=== PATIENT | male | born 1970 | race Caucasian/White ===

== ENCOUNTER 2018-06-21 19:24 | Emergency (ER) | payer BC, OTHER ==
[2018-06-21 19:44] VITALS: BP 152/101
[2018-06-21] MEDS ORDERED: Lidocaine 1% 10 ML MDV INJECT ONE (20:30)
[2018-06-21] MEDS ORDERED: oxyCODONE 5 MG Tab PO ONE (20:31)
[2018-06-21] MEDS ORDERED: Acetaminophen 325 MG Tab PO ONE (20:31)
[2018-06-21] MEDS ORDERED: Cephalexin 500 MG Cap PO ONE (21:59)
[2018-06-21] MEDS ORDERED: Sulfamethoxazole/Trimethoprim 800-160 MG Tab PO ONE (22:00)
--- NOTE | 2018-06-21 22:31 | EDM.PDOC ---
ED HPI GENERAL MEDICAL PROBLEM - General Chief Complaint: Bite:Animal, Insect Stated Complaint: DOG BITE RIGHT HAND Time Seen by Provider: 06/21/18 19:34 Source of Information: Reports: Patient, Family History Limitations: Reports: No Limitations - History of Present Illness INITIAL COMMENTS - FREE TEXT/NARRATIVE: 47-year-old male with no reported past medical history presenting with chief complaint of dog bite to the right hand. This evening shortly prior to arrival patient was attempting to break up a fight between his dogs which are fully vaccinated against rabies. He sustained L laceration to the palmar aspect of the distal phalanx of the first digit of the right hand. He then fell to his knees due to the pain and was brought to the emergency department by his . Currently the patient reports pain localized to the wound that is mild to moderate in severity worse with movement. Right 1-Thumb Pain Score (Numeric/FACES): 3 - Related Data Allergies Allergy/AdvReac Type Severity Reaction Status Date / Time ampicillin Allergy Cannot Verified 12/17/15 01:07 Remember Home Meds: Home Meds Acetaminophen 1,000 mg PO TID PRN #30 tablet 06/21/18 [Rx] Sulfamethoxazole/Trimethoprim [Bactrim Ds Tablet] 1 each PO BID #10 tablet 06/21 [Rx] cephALEXin [Cephalexin] 500 mg PO QID #40 capsule 06/21/18 [Rx] oxyCODONE 5 mg PO QID PRN #10 tab 06/21/18 [Rx] Past Medical History - Past Health History Medical/Surgical History: Denies Medical/Surgical History Other HEENT History: dental work Other Cardiovascular History: SVT at 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 Gastrointestinal History: Reports: Other (See Below) Other Gastrointestinal History: pyloric stenosis Social & Family History - Tobacco Use Smoking Status *Q: Never Smoker - Caffeine Use Caffeine Use: Reports: Coffee, Soda, Tea - Recreational Drug Use Recreational Drug Use: No ED ROS GENERAL - Review of Systems Review Of Systems: See Below Constitutional: Reports: No Symptoms HEENT: Reports: No Symptoms Cardiovascular: Reports: No Symptoms GI/Abdominal: Reports: No Symptoms Skin: Reports: Wound Neurological: Reports: No Symptoms ED EXAM, ANIMAL BITE - Physical Exam Exam: See Below Exam Limited By: No Limitations General Appearance: Alert, Mild Distress Respiratory/Chest: No Respiratory Distress Cardiovascular: Normal Peripheral Pulses, Regular Rate, Rhythm GI/Abdominal: Soft, Non-Tender Extremities: Other (Right hand: Stellate laceration to the palmar aspects of the distal phalanx of the thumb, no obvious tendon or bone visible pulsatile bleeding. There is brisk capillary refill to the digit and the patient is able to really flex the digit as well. Also minor abrasion which is on the medial aspect of the thumb. The aforementioned laceration is approximately 1 x 1 cm.) ED ANIMAL BITE PROCEDURES - Additional/Other Procedure(s) Other (Free Text) Procedure(s): Digital block was performed on the thumb of the right hand. After thorough cleansing with chlorhexidine and used 5 mL 1% lidocaine without epinephrine at the base of the right thumb. Good anesthetic results were achieved. After this and proceeded to examine the wound extremely thoroughly there appeared to be no visible tendon or bone and no serious vascular injury. The wound was thoroughly cleansed with chlorhexidine and normal saline. Proceeded to perform a loose closure of the wound which will allow for any purulent drainage that should arise. Placed simple interrupted sutures with 4-0 Prolene. The cosmetic and functional, repair were acceptable. There were no complications during the procedure. Course - Vital Signs Last Recorded V/S: Last Vital Signs Temp 37.1 C 06/21/18 19:43 Pulse 99 06/21/18 19:43 Resp 24 H 06/21/18 19:43 BP 152/101 H 06/21/18 19:43 Pulse Ox 96 06/21/18 19:43 - Orders/Labs/Meds Orders: Active Orders 24 hr Category Date Time Status Orthopedic Treatments [RC] ASDIRECTED Care 06/21/18 21:49 Active Fingers Thumb Rt F5 [CR] Stat Exams 06/21/18 20:45 Taken Meds: Medications Discontinued Medications Generic Name Dose Route Start Last Admin Trade Name Freq PRN Reason Stop Dose Admin Acetaminophen 650 mg 06/21/18 20:31 06/21/18 20:44 Tylenol PO 06/21/18 20:32 650 mg NOW ONE Administration Cephalexin 500 mg 06/21/18 21:59 06/21/18 22:08 Keflex PO 06/21/18 22:00 500 mg ONETIME ONE Administration Lidocaine HCl 10 ml 06/21/18 20:30 06/21/18 20:59 Xylocaine 1% INJECT 06/21/18 20:31 10 ml ONETIME ONE Administration Oxycodone HCl 5 mg 06/21/18 20:31 06/21/18 20:59 Oxycodone PO 06/21/18 20:32 5 mg ONETIME ONE Administration Trimethoprim/Sulfamethoxazole 1 tab 06/21/18 22:00 06/21/18 22:07 Septra Ds PO 06/21/18 22:01 1 tab ONETIME ONE Administration - Re-Assessments/Exams Free Text/Narrative Re-Assessment/Exam: 06/21/18 22:31 This is a 47-year-old male presenting with a chief complaint of dog bite to the right thumb. Exam was unrevealing of any deep structure injury; no tendon or vascular injury noted. Patient is also neurologically intact with no evidence of a nerve injury. He is able to fully flex the right thumb. Plain films of the wound were obtained there is no evidence of retained foreign body or underlying fracture by my interpretation. After digital block was performed the wound was thoroughly explored and cleansed. Repair was performed as documented above. This wound is at some risk of infection due to it being a dog bite. Therefore only loose closure was performed which will allow for some drainage from the wound. Furthermore I placed patient on prophylactic antibiotic therapy getting his first dose in the emergency department. Since he has a penicillin allergy I will treat with bactrim and keflex for 7 days. I counseled the patient extensively on size which could indicate a wound infection. He understands that he is to return to the emergency department immediately for reevaluation should he develop any signs of infection. I also told the patient he should have the wound evaluated next Saturday for any signs of infection and possible suture removal by his primary care physician. I was told by nursing that his tetanus vaccination was update here in the ED. Departure - Departure Time of Disposition: 13:00 Disposition: Home, Self-Care 01 Condition: Good Clinical Impression: Dog bite Qualifiers: Encounter type: initial encounter Qualified Code(s): W54.0XXA - Bitten by dog, initial encounter - Discharge Information *PRESCRIPTION DRUG MONITORING PROGRAM REVIEWED*: No *COPY OF PRESCRIPTION DRUG MONITORING REPORT IN PATIENT KHUSHBOO: No Prescriptions: Acetaminophen 1,000 mg PO TID PRN #30 tablet PRN Reason: Pain cephALEXin [Cephalexin] 500 mg PO QID #40 capsule oxyCODONE 5 mg PO QID PRN #10 tab PRN Reason: Pain Sulfamethoxazole/Trimethoprim [Bactrim Ds Tablet] 1 each PO BID #10 tablet Instructions: Animal Bite, [id number] Referrals: Dexter Roe Jr, MD [Primary Care Provider] - Forms: ED Department Discharge, ED Return to Work/School Form - My Orders Last 24 Hours: My Active Orders 06/21/18 20:45 Fingers Thumb Rt F5 [CR] Stat 06/21/18 21:49 Orthopedic Treatments [RC] ASDIRECTED - Assessment/Plan Last 24 Hours: My Active Orders 06/21/18 20:45 Fingers Thumb Rt F5 [CR] Stat 06/21/18 21:49 Orthopedic Treatments [RC] ASDIRECTED
--- NOTE | 2018-06-26 10:26 | CR ---
Right thumb: Three views of the right thumb were obtained. Comparison: No prior study. Soft tissue injury is identified. No fracture, dislocation or other bony abnormality is seen. Impression: 1. Soft tissue injury. No acute bony abnormality is identified on right thumb exam. Diagnostic code #2
== END 2018-06-21 22:15 | disposition home or self-care (01) ==
LOC: SUPCPDRO 19:24 → JD.ED 19:24
DX: S61.051A Open bite of right thumb without damage to nail, initial encounter (principal); Z88.1 Allergy status to other antibiotic agents; W54.0XXA Bitten by dog, initial encounter
CPT/HCPCS: 12002; 73140; 99284; A9270; 12001; 64450; 99283-25

== ENCOUNTER 2018-06-22 14:45 | Emergency (ER) | payer BC, OTHER ==
[2018-06-22] MEDS ORDERED: Diphtheria,Pertussis(Acell),Tetanus Vaccine 0.5 ML SDV IM ONE (14:50)
== END 2018-06-22 15:02 | disposition home or self-care (01) ==
LOC: JD.ED 14:45
DX: Z23 Encounter for immunization (principal)
CPT/HCPCS: 90715

== ENCOUNTER 2019-03-16 00:38 | Emergency (ER) | payer BC, OTHER ==
--- NOTE | 2019-03-16 01:04 | EDM.PDOC ---
ED HPI GENERAL MEDICAL PROBLEM - General Chief Complaint: Allergic Reaction Stated Complaint: reaction to meds Time Seen by Provider: 03/16/19 01:04 - History of Present Illness INITIAL COMMENTS - FREE TEXT/NARRATIVE: 48-year-old male presents emergency room with Increasing anxiety unusual thoughts Patient had shoulder surgery on and he's been using hydrocodone. The patient has had difficulties with anxiety and unusual thoughts with oxycodone the past with her prior surgery he stopped taking this and his thoughts improved. The patient was given hydrocodone 10/325 started out taking 2 every 6 hours as directed and has tried to decrease his dosage to one every 6 hours today and and he developed increasing anxiety and he's had bad thoughts towards his which is very unusual for him. At one point he thought he was having some chest tightness he readjusted his shoulder immobilizer and this helped with this. - Related Data Allergies Allergy/AdvReac Type Severity Reaction Status Date / Time ampicillin Allergy Cannot Verified 12/17/15 01:07 Remember Home Meds: Home Meds Acetaminophen 1,000 mg PO TID PRN #30 tablet 06/21/18 [Rx] Sulfamethoxazole/Trimethoprim [Bactrim Ds Tablet] 1 each PO BID #10 tablet 06/21 [Rx] cephALEXin [Cephalexin] 500 mg PO QID #40 capsule 06/21/18 [Rx] oxyCODONE 5 mg PO QID PRN #10 tab 06/21/18 [Rx] Past Medical History - Past Health History Medical/Surgical History: Denies Medical/Surgical History HEENT History: Reports: Other (See Below) Other HEENT History: dental work Cardiovascular History: Reports: Other (See Below) Other Cardiovascular History: SVT at 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 Gastrointestinal History: Reports: Other (See Below) Other Gastrointestinal History: pyloric stenosis - Past Surgical History Musculoskeletal Surgical History: Reports: Shoulder Surgery Social & Family History - Tobacco Use Smoking Status *Q: Never Smoker - Caffeine Use Caffeine Use: Reports: Coffee, Soda, Tea ED ROS ALLERGIC REACTION - Review of Systems Review Of Systems: See Below Constitutional: Reports: No Symptoms. Denies: Fever, Chills HEENT: Reports: No Symptoms Respiratory: Reports: No Symptoms Cardiovascular: Reports: Other (He had some chest tightness attributed to his shoulder immobilizer the into tight) Endocrine: Reports: No Symptoms GI/Abdominal: Reports: No Symptoms : Reports: No Symptoms Psychiatric: Reports: Anxiety ED EXAM GENERAL NO PERIP PULSE - Physical Exam Exam: See Below Exam Limited By: No Limitations General Appearance: Alert, No Apparent Distress Head: Atraumatic, Normocephalic Neck: Normal Inspection, Supple, Non-Tender, Full Range of Motion Respiratory/Chest: No Respiratory Distress, Lungs Clear, Normal Breath Sounds, Chest Non-Tender (His shoulder immobilizer is fitting properly at this time) Cardiovascular: Normal Peripheral Pulses, Regular Rate, Rhythm, No Edema Psychiatric: Anxious, Other (He has no suicidal thoughts or ideation) EKG INTERPRETATION EKG Date: 03/16/19 Rhythm: NSR [place]: Other (Leftward axis) P-Wave: Present QRS: Other (Late transition borderline intraventricular conduction delay) ST-T: Normal QT: Normal Comparison: NA - No Prior EKG EKG Interpretation Comments: Borderline EKG Course - Vital Signs Last Recorded V/S: Last Vital Signs Temp 36.6 C 03/16/19 00:48 Pulse 90 03/16/19 00:48 Resp 20 03/16/19 00:48 BP Pulse Ox 98 03/16/19 00:48 - Orders/Labs/Meds Orders: Active Orders 24 hr Category Date Time Status EKG Documentation Completion [RC] STAT Care 03/16/19 01:17 Active Meds: Medications Discontinued Medications Generic Name Dose Route Start Last Admin Trade Name Brenda PRN Reason Stop Dose Admin Lorazepam 0.5 mg 03/16/19 01:17 03/16/19 01:22 Ativan PO 03/16/19 01:18 0.5 mg ONETIME ONE Administration - Re-Assessments/Exams Free Text/Narrative Re-Assessment/Exam: 03/16/19 02:35 Patient doing much better after 0.5 mg of by mouth Ativan he is going to stop taking the hydrocodone he thinks he can get by using Tylenol and ibuprofen. And this certainly sounds like a reasonable approach. Departure - Departure Time of Disposition: 02:36 Disposition: Home, Self-Care 01 Clinical Impression: Anxiety - Discharge Information Referrals: Dexter Roe Jr, MD [Primary Care Provider] - Forms: ED Department Discharge Additional Instructions: Return to emergency room with any questions problems worsening symptoms. Avoid the hydrocodone, the pain pills. Use Motrin and/or Tylenol as we discussed. - My Orders Last 24 Hours: My Active Orders 03/16/19 01:17 EKG Documentation Completion [RC] STAT - Assessment/Plan Last 24 Hours: My Active Orders 03/16/19 01:17 EKG Documentation Completion [RC] STAT
[2019-03-16] MEDS ORDERED: LORazepam 0.5 MG Tab PO ONE (01:17)
== END 2019-03-16 02:45 | disposition home or self-care (01) ==
LOC: JD.ED 00:38
DX: F41.9 Anxiety disorder, unspecified (principal); Z88.1 Allergy status to other antibiotic agents
CPT/HCPCS: 93005; 99283; A9270; 93010

== ENCOUNTER 2020-07-18 18:17 | Emergency (ER) | payer BC, OTHER ==
--- NOTE | 2020-07-18 19:11 | CR ---
Chest: Portable view of the chest was obtained. Comparison: Previous chest x-ray of 12/17/15. Heart size and mediastinum are within normal limits. Lungs are clear. Bony structures are grossly intact. Impression: 1. Nothing acute is appreciated on portable chest x-ray. Diagnostic code #1 This report was dictated in MDT
--- NOTE | 2020-07-18 19:14 | EDM.PDOC ---
ED HPI GENERAL MEDICAL PROBLEM - General Chief Complaint: Cardiovascular Problem Stated Complaint: CHEST PRESSURE Time Seen by Provider: 07/18/20 18:47 Source of Information: Reports: Patient, RN Notes Reviewed History Limitations: Reports: No Limitations - History of Present Illness INITIAL COMMENTS - FREE TEXT/NARRATIVE: Patient is a 49-year-old male who presents to the ED for evaluation of his chest pressure. The patient states that he developed some left chest pressure earlier today, and he began to feel somewhat short of breath with this that he could not catch a deep breath. He also states he felt like he had to burp but could not. He thought maybe he felt a little bit lightheaded after this 2. He denies any nausea or vomiting or diarrhea, no fevers or chills, no cough. Patient's not had chest pressure anything like this before ever. He does note that he had SVT when he was 21 years old, and he was on digoxin for 1 year due to this. He is not been on any cardiac meds since this. His primary care provider is Dr. Dexter Roe, and he states he has not seen him for over a year and a half. He does have an appointment scheduled him for next week Saturday for routine physical. The patient did take his blood pressure at home, and it was 142/93, 133/92, and 153/93 subsequently. At time of triage patient's blood pressure was 140/92. He is afebrile at 97.5 F, pulse is 101 bpm, respiratory rate 18, 96% on room air. He did state that he took 1 tablet of Gas-X, and he did have a little bit of flatulence, and burped twice, but did not seem to help the pressure. He again did not say he was having any sort of sweating, felt cool clammy during this episode, he denies any chest pain. He notes that his mother and father have hypertension, but he does not know much else about his family. He does not think anyone has from early cardiac demise that he is aware of. Patient states he does take Prilosec OTC for heartburn management. - Related Data Allergies Allergy/AdvReac Type Severity Reaction Status Date / Time ampicillin Allergy Cannot Verified 07/18/20 18:28 Remember Home Meds: Home Meds Acetaminophen 1,000 mg PO TID PRN #30 tablet 06/21/18 [Rx] Past Medical History HEENT History: Reports: Other (See Below) Other HEENT History: dental work Cardiovascular History: Reports: Other (See Below) Other Cardiovascular History: SVT at 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 x 1 year Gastrointestinal History: Reports: Other (See Below) Other Gastrointestinal History: pyloric stenosis - Past Surgical History Musculoskeletal Surgical History: Reports: Shoulder Surgery Social & Family History - Caffeine Use Caffeine Use: Reports: Coffee, Soda, Tea ED ROS GENERAL - Review of Systems Review Of Systems: Comprehensive ROS is negative, except as noted in HPI. ED EXAM, GENERAL - Physical Exam Exam: See Below Exam Limited By: No Limitations General Appearance: Alert, WD/WN, No Apparent Distress, Anxious (somewhat anxious) Respiratory/Chest: No Respiratory Distress, Lungs Clear, Normal Breath Sounds, No Accessory Muscle Use, Chest Non-Tender Cardiovascular: Normal Peripheral Pulses, Regular Rate, Rhythm, No Edema, No Murmur Peripheral Pulses: 2+: Radial (L), Radial (R) Extremities: Normal Inspection, Normal Capillary Refill Neurological: Alert, Oriented, Normal Cognition, No Motor/Sensory Deficits Psychiatric: Normal Affect, Normal Mood Skin Exam: Warm, Dry, Intact, Normal Color, No Rash EKG INTERPRETATION EKG Date: 07/18/20 Time: 18:36 Rhythm: NSR Rate (Beats/Min): 99 [place]: Normal P-Wave: Present QRS: Normal ST-T: Normal QT: Normal Comparison: NA - No Prior EKG EKG Interpretation Comments: No obvious ischemia or acute ST changes noted, reviewed by myself and Dr. Castro. Course - Vital Signs Last Recorded V/S: Last Vital Signs Temp 97.5 F 07/18/20 18:23 Pulse 101 H 07/18/20 18:23 Resp 18 07/18/20 18:23 BP 140/92 H 07/18/20 18:23 Pulse Ox 96 07/18/20 18:23 - Orders/Labs/Meds Orders: Active Orders 24 hr Category Date Time Status EKG Documentation Completion [RC] STAT Care 07/18/20 18:40 Active Labs: Laboratory Tests 07/18/20 07/18/20 Range/Units 18:37 18:37 WBC 5.62 (4.23-9.07) K/mm3 RBC 5.33 (4.63-6.08) M/mm3 Hgb 16.0 (13.7-17.5) gm/dl Hct 48.1 (40.1-51.0) % MCV 90.2 (79.0-92.2) fl MCH 30.0 (25.7-32.2) pg MCHC 33.3 (32.2-35.5) g/dl RDW Std Deviation 44.2 H (35.1-43.9) fL Plt Count 259 (163-337) K/mm3 MPV 9.5 (9.4-12.3) fl Neut % (Auto) 47.4 (34.0-67.9) % Lymph % (Auto) 41.3 (21.8-53.1) % [place] % (Auto) 8.2 (5.3-12.2) % Eos % (Auto) 2.5 (0.8-7.0) Baso % (Auto) 0.4 (0.1-1.2) % Neut # (Auto) 2.67 (1.78-5.38) K/mm3 Lymph # (Auto) 2.32 (1.32-3.57) K/mm3 [place] # (Auto) 0.46 (0.30-0.82) K/mm3 Eos # (Auto) 0.14 (0.04-0.54) K/mm3 Baso # (Auto) 0.02 (0.01-0.08) K/mm3 Sodium 140 (136-145) mEq/L Potassium 3.9 (3.5-5.1) mEq/L Chloride 103 (98-107) mEq/L Carbon Dioxide 28 (21-32) mEq/L Anion Gap 12.9 (5-15) BUN 16 (7-18) mg/dL Creatinine 1.2 (0.7-1.3) mg/dL Est Cr Clr Drug Dosing 72.83 mL/min Estimated GFR (MDRD) > 60 (>60) mL/min BUN/Creatinine Ratio 13.3 L (14-18) Glucose 168 H (74-106) mg/dL Calcium 8.6 (8.5-10.1) mg/dL Total Bilirubin 0.4 (0.2-1.0) mg/dL AST 43 H (15-37) U/L ALT 144 H (16-63) U/L Alkaline Phosphatase 79 (46-116) U/L CK-MB (CK-2) 1.0 (0-3.6) ng/ml Troponin I < 0.017 (0.00-0.056) ng/mL Total Protein 7.5 (6.4-8.2) g/dl Albumin 3.9 (3.4-5.0) g/dl Globulin 3.6 gm/dL Albumin/Globulin Ratio 1.1 (1-2) - Re-Assessments/Exams Free Text/Narrative Re-Assessment/Exam: 07/18/20 19:15 Patient presents to the ED for the evaluation of his chest pressure. Cardiac labs were obtained at time of triage. And an EKG along with a chest x-ray. Chest x-ray is negative for any acute findings. EKG shows no sign of acute ischemia or ST change. This was reviewed by myself and Dr. Castro. 07/18/20 19:30 Labs are unremarkable. Trope was negative, CK-MB is 1.0 we will have him follow-up with his regular provider for a cardiac stress test. Departure - Departure Time of Disposition: 19:31 Disposition: Home, Self-Care 01 Condition: Good Clinical Impression: Sensation of chest pressure Instructions: Hypertension, Adult, [id number], Nonspecific Chest Pain, Adult, [id number] Referrals: Dexter Roe Jr, MD [Primary Care Provider] - Forms: ED Department Discharge Additional Instructions: You were evaluated in the ER today for your chest discomfort. Laboratory evaluation demonstrated that you are not suffering from a heart attack at this ER visit. EKG was within normal limits, and again shows no sign of a heart attack. Your chest x-ray also was unremarkable for any acute changes or worrisome abnormalities. Your blood pressure at the time of ER examination was 140 systolically, however this is elevated, it is not worrisomely elevated, please continue to monitor your blood pressure at home and discuss this with your primary care provider at your upcoming appointment. You should also discuss the possibility of a cardiac stress test for further evaluation with your primary care provider, Dr. Dexter Roe. Please return to the ER at any time if your symptoms change or worsen. Sepsis Event Note (ED) - Evaluation Sepsis Screening Result: No Definite Risk - Focused Exam Vital Signs: Vital Signs Temp Pulse Resp BP Pulse Ox 07/18/20 18:23 97.5 F 101 H 18 140/92 H 96 - My Orders Last 24 Hours: My Active Orders 07/18/20 18:40 EKG Documentation Completion [RC] STAT - Assessment/Plan Last 24 Hours: My Active Orders 07/18/20 18:40 EKG Documentation Completion [RC] STAT
[2020-07-18 19:55] VITALS: BP 138/109; PULSE 91
== END 2020-07-18 19:50 | disposition home or self-care (01) ==
LOC: JD.ED 18:17
DX: R07.89 Other chest pain (principal); Z88.1 Allergy status to other antibiotic agents
CPT/HCPCS: 36415; 71045; 71045-26; 80053; 82553; 84484; 85025; 93005; 93010; 99283; 99285-25

== ENCOUNTER 2022-04-30 19:06 | Emergency (ER) | payer BC, OTHER ==
[2022-04-30 20:03] VITALS: BP 153/99; PULSE 91
[2022-04-30] MEDS ORDERED: Sodium Chloride 0.9% 10 ML Syringe FLUSH PRN ×2 (20:04→20:13)
[2022-04-30] MEDS ORDERED: Ondansetron 4 MG/2 ML SDV IVPUSH ONE (20:04)
[2022-04-30] MEDS ORDERED: HYDROmorphone 1 MG/ML Syringe IVPUSH STA (20:04)
[2022-04-30] MEDS ORDERED: Iopamidol 612 MG/ML 100 ML Bottle IVPUSH ONE (20:13)
[2022-04-30] MEDS ORDERED: Sodium Chloride 0.9% 1,000 ML IV SCH (20:15)
[2022-04-30 20:45] LABS: ESTIMATED GFR 56 mL/min (>60)
== END 2022-04-30 22:10 | disposition home or self-care (01) ==
LOC: JD.ED 19:06
DX: K59.00 Constipation, unspecified (principal); Z88.0 Allergy status to penicillin
CPT/HCPCS: 36415; 74177; 80053; 81001; 83690; 85025; 86140; 96361; 96374; 96375; 99284; J1170; J2405; J3490; J7030; Q9967